=== PATIENT | female | born 1980 | race Asian ===

== ENCOUNTER 2018-12-27 15:59 | Emergency (ER) | payer OTHER ==
[~2018-12-27] VITALS: Ht 157.5 cm; Wt 49.0 kg
[2018-12-27 16:04] VITALS: BP 116/81
== END 2018-12-27 19:14 | disposition left against medical advice (07) ==
LOC: ER 15:59
DX: R11.2 Nausea with vomiting, unspecified (principal); Z53.21 Procedure and treatment not carried out due to patient leaving prior to being seen by health care provider